=== PATIENT | male | born 1945 | race Caucasian/White ===

== ENCOUNTER → 2016-06-29 | Outpatient (CLI) | payer MEDICARE, BC ==
[~2016-06-29] MED LIST: AMLO10TA2 PO; ASPI-496 PO; CALC1CAP8 PO; CETI10TA18 PO; CHLO25TA PO; DICL75TA2 PO; FLUT15.88 NAS; GLUC1TAB27 PO; LOSA100T6 PO; MULT-658 PO; NIAC500C8 PO; POTA10TA90 PO; PRAV80TA2 PO
[2016-06-29 11:29] LABS: BLOOD UREA NITROGEN 22 mg/dL (7-18)
[2016-06-29 11:33] LABS: ASPARTATE AMINO TRANSFERASE 20 U/L (15-37)
== END | disposition home or self-care (01) ==
LOC: STAR 10:06
PROVIDERS: ATTEND Orthopaedic Surgery Orthopaedic Surgery of the Spine
DX: Z01.811 Encounter for preprocedural respiratory examination (principal); J98.4 Other disorders of lung; M48.06 Spinal stenosis, lumbar region
CPT/HCPCS: 36415; 71020; 80053; 81003; 85025; 93005

== ENCOUNTER 2016-07-08 06:44 | Day surgery (SDC) | payer MEDICARE, BC ==
[~2016-07-08] VITALS: Ht 190.5 cm; Wt 112.0 kg
[~2016-07-08 06:44] MED LIST changes: +BACITRACIN 50,000 UNIT ONE; +BUPIVACAINE/PF-EPI 0.25% 1:200K ONE; +NEOSPORIN OINT, 15GM ONE; +THROMBIN 5,000 UNIT VIAL TP ONE
[2016-07-08] MEDS ORDERED: LACTATED RINGERS 1,000 ML IV SCH (07:07)
[2016-07-08 07:08] VITALS: BP 144/87
[2016-07-08] MEDS ORDERED: LIDOCAINE 1%, 2ML SQ PRN (07:30)
[2016-07-08] MEDS ORDERED: FENTANYL PF 250 MCG/5ML ONE (08:26)
[2016-07-08] MEDS ORDERED: MIDAZOLAM 1 MG/ML, 2ML ONE (08:26)
[2016-07-08] MEDS ORDERED: ONDANSETRON 2MG/ML, 2ML ONE (09:02)
[2016-07-08] MEDS ORDERED: ROCURONIUM 10 MG/ML ONE (09:02)
[2016-07-08] MEDS ORDERED: DEXAMETHASONE 4 MG/ML, 5ML ONE (09:02)
[2016-07-08] MEDS ORDERED: PROPOFOL 10 MG/ML, 20ML ONE (09:02)
[2016-07-08] MEDS ORDERED: CEFAZOLIN 1,000 MG ONE (09:02)
[2016-07-08] MEDS ORDERED: METOCLOPRAMIDE 5 MG/ML, 2ML ONE (09:02)
[2016-07-08] MEDS ORDERED: ONDANSETRON 2MG/ML, 2ML IVPush PRN ×2 (09:30→10:00)
[2016-07-08] MEDS ORDERED: OXYcodone/APAP 5/325MG TABLET PO PRN (09:30)
[2016-07-08] MEDS ORDERED: PROMETHAZINE 25 MG/ML, 1ML IM PRN (09:30)
[2016-07-08] MEDS ORDERED: morphine SULFATE 10 MG/ML, 1ML IVPush PRN (09:30)
[2016-07-08] MEDS ORDERED: LABETALOL 5MG/ML, 20ML IV PRN (10:00)
[2016-07-08] MEDS ORDERED: OXYcodone 5 MG/5 ML ORAL.SOL UDC PO PRN (10:00)
[2016-07-08] MEDS ORDERED: HYDROmorphone 1 MG/ML, 1ML IV PRN (10:00)
[2016-07-08] MEDS ORDERED: MEPERIDINE/PF 25MG/0.5ML IVPush PRN (10:00)
[2016-07-08] MEDS ORDERED: FENTANYL PF 100 MCG/2ML IV PRN (10:00)
[2016-07-08] MEDS ORDERED: PROMETHAZINE 25 MG/ML, 1ML IV PRN (10:00)
[2016-07-08] MEDS ORDERED: ACETAMINOPHEN 325 MG TABLET PO PRN (10:00)
[2016-07-08] MEDS ORDERED: hydrALAzine 20 MG/ML, 1ML IV PRN (10:00)
[2016-07-08] MEDS ORDERED: HYDROmorphone 1 MG/ML, 1ML ONE (10:25)
[2016-07-08] MEDS ORDERED: ACETAMINOPHEN 650 MG/20.3 ML UDC ONE (11:02)
[2016-07-08] MEDS ORDERED: OXYcodone 5 MG/5 ML ORAL.SOL UDC ONE (11:02)
[2016-07-08] MEDS ORDERED: FLUTICASONE PROPIONATE NAS SCH (21:00)
[2016-07-08] MEDS ORDERED: TEMPLATE NON-FORMULARY MED. (Pravastatin Sodium** 80 MG) PO SCH (21:00)
[2016-07-09] MEDS ORDERED: TEMPLATE NON-FORMULARY MED. (Calcium Carbonate/Vitamin D3** (Calcium 600 + D3 Softgel**) 1 PO SCH (09:00)
[2016-07-09] MEDS ORDERED: POTASSIUM CHLORIDE 10 MEQ TABLET.ER PO SCH (09:00)
[2016-07-09] MEDS ORDERED: MULTIVITAMIN 1 TABLET PO SCH (09:00)
[2016-07-09] MEDS ORDERED: NIACIN PO SCH (09:00)
[2016-07-09] MEDS ORDERED: TEMPLATE NON-FORMULARY MED. (Amlodipine Besylate (Amlodipine Besylate**) 10 MG) PO SCH (09:00)
[2016-07-09] MEDS ORDERED: TEMPLATE NON-FORMULARY MED. (Gluc Su/Chondro Su A/Vit C/Mn** (Glucosamine Chondroitin Tab PO SCH (09:00)
[2016-07-09] MEDS ORDERED: CETIRIZINE 10 MG TABLET PO SCH (09:00)
[2016-07-09] MEDS ORDERED: TEMPLATE NON-FORMULARY MED. (Losartan Potassium** 100 MG) PO SCH (09:00)
[2016-07-09] MEDS ORDERED: [UNRECOGNIZED DRUG - OTHER] PO SCH (09:00)
[2016-07-09] MEDS ORDERED: CHLORTHALIDONE 25 MG TABLET PO SCH (09:00)
== END 2016-07-08 12:45 | disposition home or self-care (01) ==
LOC: OUT 06:44
PROVIDERS: ATTEND Orthopaedic Surgery Orthopaedic Surgery of the Spine
DX: M48.06 Spinal stenosis, lumbar region (principal); M54.16 Radiculopathy, lumbar region; I10 Essential (primary) hypertension; Z87.891 Personal history of nicotine dependence; M19.90 Unspecified osteoarthritis, unspecified site
CPT/HCPCS: 63047; 63048; 72100; J0690; J1100; J1170; J2250; J2405; J2704; J2765; J3010; J7120